=== PATIENT | male | born 1975 | race Caucasian/White ===

== ENCOUNTER 2021-08-06 11:53 | Emergency (ER) | payer OTHER, SELFPAY ==
[2021-08-06 11:57] VITALS: BP 139/82; PULSE 72; RESP 16; TEMP 36.1; O2SAT 97
[2021-08-06 12:01] VITALS: BP 133/94; PULSE 89; RESP 20; TEMP 36.6; O2SAT 98
--- NOTE | 2021-08-06 12:07 | ED.EAR ---
HPI - Ear Problem General Chief complaint: Ear Stated complaint: Ear infection Time Seen by Provider: 08/06/21 11:58 Source: patient Mode of arrival: ambulatory Limitations: no limitations History of Present Illness HPI Narrative: This is a 45-year-old male that presents to the emergency department for ear pain noted over the last week. Reports he was evaluated at urgent care and prescribed antibiotic eardrops and an oral antibiotic. He was told to start the eardrops and will need to start oral antibiotics if his pain worsen. He has finished the otic drops. He did start taking the oral antibiotic a couple of days ago as the pain in his left ear has worsened. Reports it still fills full as though there is fluid in the ear. Denies fever or drainage. Related Data Allergies Allergy/AdvReac Type Severity Reaction Status Date / Time No Known Allergies Allergy Mild Verified 08/06/21 11:59 Review of Systems Review of Systems: CONSTITUTIONAL: Denies fever ENT: Reports otalgia. Denies rhinorrhea, congestion, sore throat RESPIRATORY: Denies cough All systems reviewed & are unremarkable except as noted in HPI and below PMFSH Past Medical History Medical History (Updated 08/06/21 @ 12:13 by Therese Irby PA-C) No active medical problems Social History Social History (Updated 08/06/21 @ 12:09 by Therese Irby PA-C) Smoking status: Current every day smoker Exam Narrative: GENERAL: Well-appearing, well-nourished, and in no acute distress. HEAD: Normocephalic, atraumatic. EYES: EOMI. ENT: Mucous membranes moist. Oropharynx with mildly red, without tonsillar hypertrophy exudate or other lesions. Bilateral TMs pearly lees non-bulging. Bilateral external auditory canals are normal. No mastoid tenderness or erythema NECK: Supple. No adenopathy or masses. CHEST: Clear to auscultation. No respiratory distress. No wheezes rales or rhonchi HEART: Regular rate and rhythm. No murmur heard. Normal peripheral pulses. EXTREMITIES: Normal range of motion. No edema. SKIN: Warm, dry, no rash. NEURO: No focal deficits. Alert and oriented x3. PSYCH: Normal mood and affect Course Vital Signs Vital signs: Vital Signs Temperature 96.9 F L 08/06/21 11:57 Pulse Rate 72 08/06/21 11:57 Respiratory Rate 16 08/06/21 11:57 Blood Pressure 139/82 08/06/21 11:57 Pulse Oximetry 97 08/06/21 11:57 Oxygen Delivery Room Air 08/06/21 11:57 Temperature 97.8 F 08/06/21 12:01 Pulse Rate 89 08/06/21 12:01 Respiratory Rate 20 08/06/21 12:01 Blood Pressure 133/94 H 08/06/21 12:01 Pulse Oximetry 98 08/06/21 12:01 Oxygen Delivery Room Air 08/06/21 12:01 Medical Decision Making MDM Narrative Medical decision making narrative: Patient presents to the emergency department for continued otalgia. He has finished a week of Ciprodex. He also has been on Augmentin for a couple of days. He is afebrile and nontoxic-appearing. Bilateral external auditory canals and TMs are normal. He was instructed to finish his oral antibiotic as prescribed. He does report he seems to have recurrent issues with his ears and sinuses. He will be given follow-up with ENT. He was given warnings to return to the ER Vital Signs Vital Signs: Vital Signs Temperature 96.9 F L 08/06/21 11:57 Pulse Rate 72 08/06/21 11:57 Respiratory Rate 16 08/06/21 11:57 Blood Pressure 139/82 08/06/21 11:57 Pulse Oximetry 97 08/06/21 11:57 Oxygen Delivery Room Air 08/06/21 11:57 Temperature 97.8 F 08/06/21 12:01 Pulse Rate 89 08/06/21 12:01 Respiratory Rate 20 08/06/21 12:01 Blood Pressure 133/94 H 08/06/21 12:01 Pulse Oximetry 98 08/06/21 12:01 Oxygen Delivery Room Air 08/06/21 12:01 Critical Care Time Critical Care Time Critical Care Time: No Discharge Plan Discharge Clinical Impression: Otalgia of left ear Patient Disposition: Home, Self-Care Condition: Stable Instructions: Ant
== END 2021-08-06 12:25 | disposition home or self-care (01) ==
LOC: ANHED 12:17
PROVIDERS: Emergency Provider Emergency Medicine
DX: H92.02 Otalgia, left ear (principal); F17.200 Nicotine dependence, unspecified, uncomplicated
CPT/HCPCS: 99281

== ENCOUNTER 2024-09-10 11:50 | Emergency (ER) | payer OTHER, SELFPAY ==
--- NOTE | ~2024-09-10 | XR_ITS ---
EXAM/PROCEDURE: XR chest 2V - 09/10/2024 12:20 CDT HISTORY: 49 years old Male with chest pain TECHNIQUE: Two view(s) of the chest. COMPARISON: None available. FINDINGS: LUNGS/ PLEURA: No focal consolidation. No appreciable pneumothorax or large pleural effusion. HEART/ MEDIASTINUM: Heart appears normal in size. BONES: No acute osseous abnormality. OTHER: Visualized upper abdomen is unremarkable. IMPRESSION: No acute process. Reviewed, dictated and finalized at location A. IMPRESSION: No acute process.
--- OUTSIDE RECORDS SUMMARY | 2024-09-10 11:51 | XMS_ITS | Clinical Summary ---
Author Organization [facility] Address [address] [place] [id number] Care Team Providers Care Manufacturers Representative Name Role Phone Unavailable Primary Care Provider Unavailabl e Social History Tobacco Use Types Packs/Day Years Used Date Smoking Tobacco: Never Assessed Sex and Gender Information Value Date Recorded Sex Assigned at Not on file Legal Sex Male 8:14 PM CDT Gender Identity Not on file Sexual Orientation Not on file Last Filed Vital Signs Vital Sign Reading Time Taken Comments Blood Pressure 120/80 08/07/2015 10:54 AM CDT Pulse 84 08/07/2015 10:54 AM CDT Temperature - - Respiratory Rate - - Oxygen Saturation - - Inhaled Oxygen Concentration - - Weight 77.1 kg (170 lb) 08/07/2015 10:54 AM CDT Height 182.9 cm (6') 08/07/2015 10:54 AM CDT Body Mass Index 23.06 08/07/2015 10:54 AM CDT Plan of Treatment Health Maintenance Due Date Last Done Comments Colorectal Cancer Screening Colonoscopy (10 Years) 1977 Annual Physical 1980 DTaP, Tdap and Td Vaccines ( 1 - Tdap) 1996 Hepatitis B Vaccines (1 of 3 - 19+ 3-dose series) 1996 COVID-19 Vaccine ( - 2023-2 5 season) 2023 Hepatitis C Completed 08/07/2015 Meningococcal B Vaccine Aged Out No l onger eligible based on patient's age to complete this topic Meningococcal Vaccine Aged Out No bettie asim eligible based on patient's age to complete this topic Pneumococcal Vaccine: Pediat rics (0 to 5 Years) and At-Risk Patients (6 to 49 Years) Aged Out No longer eligi ble based on patient's age to complete this topic RSV Immunizations Under 20 Months Aged Out No longer eligible based on patient's age to complete this topic Procedures Procedure Name Priority Date/Time Associated Diagnosis Comments HEPATITIS C ANTIBODY Routine 08/07/2015 11:26 AM CDT from Last 3 Months or Most Recently Relevant to Health Maintenance Results * HEPATITIS C ANTIBODY (08/07/2015 11:26 AM CDT) HEPATITIS C AB NON-REACT CARLOS EDUARDO NON-REACT CARLOS EDUARDO [facility] TO EPIC CONVERSION SIGNAL TO CUTOFF 0.01 <1.00 [facility] TO EPIC CONVERSION Comment: Result Comment: Test Performed at: [facility] [id number] [place] [address] ITZ PABLO DO,MPH 08/07/2015 11:2 6 AM CDT 08/07/2015 11:26 AM CDT Narrative [facility] TO EPIC CONVERSION - 08/08/2015 6:08 AM CDT Result Communication: Mail Results to Patient Linette Rodriguez NP LABORATORY Final Result [facility] TO EPIC CONVERSION from Last 3 Months or Most Recently Relevant to Health Maintenance
--- NOTE | 2024-09-10 11:52 | ECG_ITS ---
Test Date: 2024-09-10 11:55:07 Measurements Intervals [place] Rate: 87 P: 68 [place]: 158 QRS: 85 QRSD: 106 T: 39 QT: 314 QTc: 380 Interpretive Statements SINUS RHYTHM POSSIBLE LEFT ATRIAL ENLARGEMENT [-0.1mV P WAVE IN V1/V2] NONSPECIFIC T-WAVE ABNORMALITY No previous ECG available for comparison Electronically Signed On 09-11-2024 18:37:30 CDT by Dean De Jesus M.D.
[2024-09-10 11:55] VITALS: BP 148/107; PULSE 82; RESP 17; TEMP 36.4; O2SAT 95
[2024-09-10 12:10] LABS: Hematocrit 51.6 % (42.0-52.0); Hemoglobin 17.9 g/dL (14.0-18.0); Immature Granulocyte Percent A 0.7 % (0-0.5); Lymphocytes Absolute Auto 2.87 K/mm3 (0.9-3.2); Mean Corpuscular HGB Conc 34.7 g/dl (32-36); Mean Corpuscular Hemoglobin 32.4 pg (26-34); Mean Corpuscular Volume 93.5 fl (80-100); Nucleated Red Blood Cells Absolute Auto 0.000 K/mm3 (0.0-0.012); Nucleated Red Blood Cells Perc 0.0 % (0.0-0.2); Platelet Count Result 243 k/mm3 (150-375); Red Blood Count 5.52 M/mm3 (4.6-6.20); White Blood Count 10.7 K/mm3 (4.5-10.0)
[2024-09-10 12:30] LABS: INR 1.0; Prothrombin Time 12.9 Seconds (11.1-14.7)
[2024-09-10 12:31] LABS: Partial Thromboplastin Time 27.0 Seconds (22.3-36.8)
[2024-09-10 12:32] LABS: Alanine Aminotransferase 61 U/L (6-50); Albumin Level 4.5 g/dL (3.5-5.1); Alkaline Phosphatase 82 U/L (38-126); Anion Gap 8 mmol/L (4-12); Aspartate Amino Transferase 53 U/L (17-59); Bilirubin,Total 0.7 mg/dL (0.2-1.3); Blood Urea Nitrogen 10 mg/dL (9-20); Calcium 9.1 mg/dL (8.4-10.2); Carbon Dioxide 21 mmol/L (22-30); Chloride 105 mmol/L (98-107); Estimated CRCL calculation 70 ml/min; Estimated Glomerular Filt Rate > 60; Glucose 143 mg/dL (65-110); Lipase 33 U/L (23-300); Potassium 3.7 mmol/L (3.4-5.0); Sodium 134 mmol/L (137-145); Total Protein 7.5 g/dL (6.3-8.2)
[2024-09-10 12:42] LABS: Troponin I < 0.012 ng/mL (0.000-0.034)
[2024-09-10 13:22] VITALS: PULSE 70
--- NOTE | 2024-09-10 13:22 | ED.GENADULT ---
HPI - General Adult General Chief complaint: Chest Pain Stated complaint: chest pain/sob Time Seen by Provider: 09/10/24 13:13 History of Present Illness HPI narrative: 49-year-old male present to the emergency department for evaluation for intermittent chest pain that started yesterday. Patient states pain is primarily left-sided but does radiate both sides. Patient states when the pain is present and he takes deep breath the pain is worsened. Patient describes that pain as being sharp. Denies any prior history of coronary disease. Patient denies any history of is hypertension high cholesterol. Patient denies any recent coughs colds or fevers. Patient denies any hormone replacement therapy, recent surgery, history of cancer or recent falls or injuries. Related Data Allergies Allergy/AdvReac Type Severity Reaction Status Date / Time No Known Allergies Allergy Mild Verified 09/10/24 12:00 Review of Systems Review of Systems: All systems reviewed & are unremarkable except as noted in HPI and below PMFSH Past Medical History Medical History (Updated 09/10/24 @ 15:53 by Surendra Alcazar MD) No active medical problems Social History Social History (Updated 08/06/21 @ 12:09 by Therese Irby PA-C) Smoking status: Current every day smoker Exam Narrative: APPEARANCE: Well appearing, no pain, no distress, well-nourished. HEAD: normocephalic, atraumatic. EYES: PERRLA/EOMI, conjunctivae clear. NOSE: Normal no drainage EARS:TMS clear with good light reflex. THROAT: Pharynx clear, no exudate. NECK: Supple. No adenopathy, no masses. RESPIRATORY: Airway patent, respirations nonlabored. Clear to auscultation bilaterally, no rales, rhonchi, wheezing. CARDIOVASCULAR: Regular rate and rhythm without murmurs rubs or gallops. ABDOMINAL: Soft, nontender, nondistended, normal bowel sounds MUSCULOSKELETAL: Mild reproducible left-sided chest wall tenderness to palpation NEURO: Alert. Cranial nerves II through XII intact. Good gait. Good coordination SKIN: Warm, dry. Normal Color Course Vital Signs Vital signs: Vital Signs Temperature 97.6 F 09/10/24 11:55 Pulse Rate 82 09/10/24 11:55 Respiratory Rate 17 09/10/24 11:55 Blood Pressure 148/107 H 09/10/24 11:55 Pulse Oximetry 95 09/10/24 11:55 Oxygen Delivery Room Air 09/10/24 11:55 Temperature 97.4 F L 09/10/24 16:03 Pulse Rate 72 09/10/24 16:03 Respiratory Rate 14 09/10/24 16:03 Blood Pressure 141/90 H 09/10/24 16:03 Pulse Oximetry 98 09/10/24 16:03 Oxygen Delivery Room Air 09/10/24 11:55 Medical Decision Making MDM Narrative Medical decision making narrative: 49-year-old male presenting to the emergency department for evaluation for left-sided chest pain. Patient is currently afebrile but does have a leukocytosis of 10.7 hemoglobin of 17.9. Patient's INR is 1.0. D-dimer was ordered but was not part of the protocol labs. Patient's initial troponin was negative patient has no acute abnormalities on the CMP and also has a negative lipase. Chest x-ray shows no acute cardiopulmonary abnormality. EKG shows normal sinus rhythm with no evidence of infarction. Patient had negative serial troponins. On re-evaluation patient states he does feel improved. Patient's symptoms are more consistent with pleurisy. Patient's D-dimer was not elevated the low concern for pulmonary embolism Differential Diagnosis Differential Diagnosis: Pulmonary embolism, pneumonia, pneumothorax, ACS, pleurisy, gastritis Vital Signs Vital Signs: Vital Signs Temperature 97.6 F 09/10/24 11:55 Pulse Rate 82 09/10/24 11:55 Respiratory Rate 17 09/10/24 11:55 Blood Pressure 148/107 H 09/10/24 11:55 Pulse Oximetry 95 09/10/24 11:55 Oxygen Delivery Room Air 09/10/24 11:55 Temperature 97.4 F L 09/10/24 16:03 Pulse Rate 72 09/10/24 16:03 Respiratory Rate 14 09/10/24 16:03 Blood Pressure 141/90 H 09/10/24 16:03 Pulse Oximetry 98 09/10/24 16:03 Oxygen Delivery Room Air 09/10/24 11:55 Lab Data Lab results reviewed: Yes I reviewed the patient's lab results. 09/10/24 12:00 09/10/24 12:00 Labs: Lab Results 09/10/24 09/10/24 Range/Units 12:00 14:54 WBC 10.7 H (4.5-10.0) K/mm3 RBC 5.52 (4.6-6.20) M/mm3 Hgb 17.9 (14.0-18.0) g/dL Hct 51.6 (42.0-52.0) % MCV 93.5 (80-100) fl MCH 32.4 (26-34) pg MCHC 34.7 (32-36) g/dl RDW 12.7 (11.5-14.5) % Plt Count 243 (150-375) k/mm3 MPV 10.1 (7.4-10.4) fl Immature Gran % (Auto) 0.7 H (0-0.5) % Neut % (Auto) 62.2 (45.5-73.1) % Lymph % (Auto) 26.8 (18.3-44.2) % [place] % (Auto) 7.0 (2.6-8.5) % Eos % (Auto) 2.7 (0-4.4) % Baso % (Auto) 0.6 (0.2-1.2) % Lymph # (Auto) 2.87 (0.9-3.2) K/mm3 [place] # (Auto) 0.8 H (0.1-0.6) K/mm3 Eos # (Auto) 0.3 (0-0.3) K/mm3 Baso # (Auto) 0.1 (0.0-0.1) K/mm3 Abs Immat Gran (auto) 0.07 H (0.00-0.031) K/mm3 Absolute Neuts (auto) 6.7 (1.3-6.7) K/mm3 Absolute Nucleated RBC 0.000 (0.0-0.012) K/mm3 Nucleated RBC % 0.0 (0.0-0.2) % PT 12.9 (11.1-14.7) Seconds INR 1.0 APTT 27.0 (22.3-36.8) Seconds D-Dimer < 0.27 (<0.48) ug/mL Sodium 134 L (137-145) mmol/L Potassium 3.7 (3.4-5.0) mmol/L Chloride 105 (98-107) mmol/L Carbon Dioxide 21 L (22-30) mmol/L Anion Gap 8 (4-12) mmol/L BUN 10 (9-20) mg/dL Creatinine 1.24 (0.7-1.3) mg/dL Estim Creat Clear Calc 70 ml/min Estimated GFR > 60 (59 - ) Glucose 143 H (65-110) mg/dL Calcium 9.1 (8.4-10.2) mg/dL Total Bilirubin 0.7 (0.2-1.3) mg/dL AST 53 (17-59) U/L ALT 61 H (6-50) U/L Alkaline Phosphatase 82 (38-126) U/L Troponin I < 0.012 < 0.012 (0.000-0.034) ng/mL Total Protein 7.5 (6.3-8.2) g/dL Albumin 4.5 (3.5-5.1) g/dL Lipase 33 (23-300) U/L Imaging Data Radiologist's impression: Impressions Chest X-Ray 09/10/24 12:41 IMPRESSION: No acute process. ECG Data EKG #1: EKG Interpretation: normal rate, sinus rhythm, no ectopy, non-specific ST changes, normal QRS, normal QT and NL axis Discharge Plan Discharge Clinical Impression: Chest pain, Pleurisy Patient Disposition: Home Condition: Stable Instructions: Antibiotic Form, Chest Pain (ED), Pleurisy (ED) Additional Instructions: Scheduled ibuprofen to help with your pleuritic chest pain. Have close follow-up with your primary care physician for additional outpatient cardiac testing. If you have any worsening symptoms then please call or return to the emergency department. Patient Language: Prydeinig Follow-up/Referrals: PHYSICIAN,TECHNICAL PROJECT COORDINATOR [Primary Care Provider] - Quality HEART score for chest pain patients History: slightly suspicious ECG: normal Age: > 45 and < 65 years Risk factors: 1 or 2 risk factors Troponin: < or = to 1x normal limit Heart score: 2
[2024-09-10] MEDS: ASPIRIN 81 MG CHEWABLE TABLET 324 MG PO (13:25)
[2024-09-10] MEDS: KETOROLAC 15 MG/ML VIAL (*BKC) IV PUSH (13:26)
--- OUTSIDE RECORDS SUMMARY | 2024-09-10 13:26 | XMS_ITS | Clinical Summary ---
Author Organization [facility] Address [address] [place] [id number] Care Team Providers Care Jail Manager Name Role Phone Unavailable Primary Care Provider [...] C AB NON-REACT CARLOS EDUARDO NON-REACT CARLOS EDUAROD [facility] TO EPIC CONVERSION SIGNAL TO CUTOFF 0.01 <1.00 [facility] TO EPIC CONVERSION Comment: Result Comment: Test Performed at: [facility] [address] [place] [address] ITZ PABLO DO,MPH 08/07/2015 11:2 6 AM CDT 08/07/2015 11:26 AM CDT Narrative [facility] TO EPIC CONVERSION - 08/08/2015 6:08 AM CDT Result Communication: Mail Results to Patient Linette Rodriguez NP LABORATORY Final Result [facility] TO EPIC CONVERSION from Last 3 Months or Most Recently Relevant to Health Maintenance
[2024-09-10 13:29] VITALS: BP 148/99; PULSE 70; RESP 14; O2SAT 96
[2024-09-10 14:37] VITALS: BP 140/93; PULSE 66; RESP 12; O2SAT 97
--- NOTE | 2024-09-10 14:38 | ECG_ITS ---
Test Date: 2024-09-10 14:53:23 Measurements Intervals [place] Rate: 63 P: 46 [place]: 183 QRS: 83 QRSD: 104 T: 58 QT: 397 QTc: 407 Interpretive Statements SINUS RHYTHM Compared to ECG 09/10/2024 11:55:07 T-wave abnormality no longer present Electronically Signed On 09-11-2024 18:41:30 CDT by Dean De Jesus M.D.
[2024-09-10 15:41] LABS: Troponin I < 0.012 ng/mL (0.000-0.034)
[2024-09-10 16:03] VITALS: BP 141/90; PULSE 72; RESP 14; TEMP 36.3; O2SAT 98
== END 2024-09-10 16:06 | disposition home or self-care (01) ==
PROVIDERS: Emergency Provider Emergency Medicine
DX: R09.1 Pleurisy (principal); F17.200 Nicotine dependence, unspecified, uncomplicated; R94.31 Abnormal electrocardiogram [ECG] [EKG]
CPT/HCPCS: 36415; 71046; 80053; 83690; 84484; 85025; 85380; 85610; 85730; 93005; 96374; 99284; A9270; J1885